=== PATIENT | male | born 1940 | race African-American/Black ===

== ENCOUNTER → 2024-09-26 | Day surgery (SDC) | payer MEDICARE ==
[2024-09-14 14:56] LABS: BASOPHILS % 0.5 % (0.0-1.0); EOSINOPHILS % 1.6 % (0.0-6.0); LYMPHOCYTES % 34.9 % (18.0-39.1); MONOCYTES % 11.8 % (4.4-11.3); NEUTROPHILS % 51.0 % (38.7-80.0); RED CELL DISTRIBUTION WIDTH 14.8 % (11.7-14.4)
[~2024-09-26] MED LIST: ACETAMINOPHEN 1000 MG/100 ML 100 ML IV ONE; DEXAMETHASONE SOD PHOS INJ 4 MG/ML SDV ONE; EPHEDRINE SULFATE INJ 50 MG/ML VIAL ONE; FENTANYL CITRATE/PF 100MCG/2 ML INJ ONE; FLUMAZENIL 0.5MG/ 5ML VIAL ONE; LIDOCAINE HCL 2% LOCAL INJ 5 ML SDV VIAL INJ ONE; ONDANSETRON HCL INJ 2MG/ML 2ML 2 MG/ML VIAL ONE; PROPOFOL IV EMULSION 10 MG/ML 20 ML VIAL ONE; Z.0.LEVAQUIN500 MG PO
[2024-09-26] MEDS: LACTATED RINGER'S 1,000 ML ONE (13:48)
[2024-09-26 14:52] VITALS: TEMP 97
[2024-09-26] MEDS: FENTANYL CITRATE/PF 100MCG/2 ML INJ IV ONE ×2 (15:03→15:10)
[2024-09-26] MEDS: ACETAMINOPHEN 1000 MG/100 ML IV ONE (15:15)
[2024-09-26 15:55] VITALS: BP 130/77; PULSE 66; RESP 16; O2SAT 98
== END | disposition home or self-care (01) ==
LOC: OR 13:28
PROVIDERS: ATTEND Specialist
DX: G56.03 Carpal tunnel syndrome, bilateral upper limbs (principal); Z88.0 Allergy status to penicillin; Z91.041 Radiographic dye allergy status; Z01.812 Encounter for preprocedural laboratory examination; Z01.818 Encounter for other preprocedural examination
CPT/HCPCS: 29848; 36415; 71046; 85025; J0131; J0690; J1100; J2003; J2405; J2704; J3010; J7121